=== PATIENT | female | born 1990 | race Caucasian/White ===

== ENCOUNTER 2018-06-07 14:03 | Emergency (ER) | payer MEDICAID ==
[~2018-06-07] VITALS: Ht 167.6 cm; Wt 135.9 kg
[2018-06-07 14:17] VITALS: BP 143/87
[2018-06-07] MEDS ORDERED: BACITRACIN ZINC OINT 500U/GM, 0.9 GM ONE ×2 (14:45→14:46)
== END 2018-06-07 14:58 | disposition home or self-care (01) ==
LOC: ED 14:52
DX: L03.114 Cellulitis of left upper limb (principal)
CPT/HCPCS: 99283

== ENCOUNTER 2018-06-09 09:47 | Emergency (ER) | payer MEDICAID ==
[~2018-06-09] VITALS: Ht 167.6 cm; Wt 139.3 kg
[2018-06-09 09:55] VITALS: BP 140/79
== END 2018-06-09 10:35 | disposition home or self-care (01) ==
LOC: ED 10:13
DX: L03.114 Cellulitis of left upper limb (principal); F17.200 Nicotine dependence, unspecified, uncomplicated
CPT/HCPCS: 99282

== ENCOUNTER 2018-06-10 22:43 | Emergency (ER) | payer MEDICAID ==
[~2018-06-10] VITALS: Ht 167.6 cm; Wt 139.3 kg
[2018-06-10 22:51] VITALS: BP 135/77
== END 2018-06-10 23:54 | disposition home or self-care (01) ==
LOC: ED 23:47
DX: L03.114 Cellulitis of left upper limb (principal)
CPT/HCPCS: 99281

== ENCOUNTER 2018-08-06 13:07 | Emergency (ER) | payer MEDICAID ==
[~2018-08-06] VITALS: Ht 167.6 cm; Wt 138.5 kg
[2018-08-06 13:48] VITALS: BP 157/96
[2018-08-06] MEDS ORDERED: KETOROLAC 30 MG/1 ML ONE (14:15)
[2018-08-06] MEDS ORDERED: METHOCARBAMOL 750 MG TABLET ONE (14:15)
[2018-08-06] MEDS ORDERED: METHOCARBAMOL 750 MG TABLET PO ONE (14:30)
[2018-08-06] MEDS ORDERED: KETOROLAC 30 MG/1 ML IM ONE (14:30)
== END 2018-08-06 14:57 | disposition home or self-care (01) ==
LOC: ED 14:50
DX: G24.3 Spasmodic torticollis (principal); F17.210 Nicotine dependence, cigarettes, uncomplicated
CPT/HCPCS: 72050; 96372; 99283; J1885

== ENCOUNTER 2019-04-06 21:42 | Emergency (ER) | payer MEDICAID ==
[~2019-04-06] VITALS: Ht 167.6 cm; Wt 120.0 kg
[2019-04-06 21:43] VITALS: BP 138/83
== END 2019-04-06 23:52 | disposition home or self-care (01) ==
LOC: ED 23:25
DX: S62.631B Displaced fracture of distal phalanx of left index finger, initial encounter for open fracture (principal); S61.211A Laceration without foreign body of left index finger without damage to nail, initial encounter; W23.0XXA Caught, crushed, jammed, or pinched between moving objects, initial encounter; Y93.89 Activity, other specified; Y92.009 Unspecified place in unspecified non-institutional (private) residence as the place of occurrence of the external cause; Y99.8 Other external cause status
CPT/HCPCS: 12042; 73140; 90471; 90715; 99284; Q0177

== ENCOUNTER 2019-07-10 19:53 | Emergency (ER) | payer MEDICAID ==
[~2019-07-10] VITALS: Ht 167.6 cm; Wt 121.9 kg
[~2019-07-10 19:53] MED LIST: B/P MED; CEPH-376 PO; LISI-170 PO; TRAM50TA2 PO; [UNRECOGNIZED DRUG - REMARK]
--- NOTE | 2019-07-10 21:14 | NUR ---
AMBULATORY TO XRAY
--- NOTE | 2019-07-10 21:48 | NUR ---
PT REPORT FROM JOSSELYN DE [facility]. PT CARE TO BE ASSUMED. DR BRAN IN PT ROOM
[2019-07-10] MEDS ORDERED: DULA0.75 SQ (22:01)
[2019-07-10 22:11] VITALS: BP 115/79
== END 2019-07-10 22:16 | disposition home or self-care (01) ==
LOC: ED 22:00
DX: B34.9 Viral infection, unspecified (principal); I10 Essential (primary) hypertension; F17.200 Nicotine dependence, unspecified, uncomplicated; Z90.89 Acquired absence of other organs
CPT/HCPCS: 71046; 99283

== ENCOUNTER 2020-08-30 12:11 | Emergency (ER) | payer MEDICAID ==
[~2020-08-30] VITALS: Ht 167.6 cm; Wt 100.0 kg
[~2020-08-30 12:11] MED LIST changes: +DULA0.75 SQ
[2020-08-30] MEDS ORDERED: SODIUM CHLORIDE FLUSH 10ML SYR IVF ONE (12:30)
[2020-08-30] MEDS ORDERED: LORazepam 1MG TABLET ONE (13:08)
[2020-08-30] MEDS ORDERED: ONDANSETRON 2MG/ML, 2ML ONE (13:26)
[2020-08-30] MEDS ORDERED: LORazepam 1MG TABLET PO ONE (13:30)
[2020-08-30 13:35] LABS: BASOPHILS % (AUTO) 1 % (0-1); EOSINOPHILS % (AUTO) 1 % (1-7); LYMPHOCYTES % (AUTO) 19 % (22-44); MEAN CORPUSCULAR HEMOGLOBIN 29.3 pg (27.0-34.8); MEAN CORPUSCULAR HGB CONC 32.9 g/dL (32.4-35.8); MEAN PLATELET VOLUME 7.7 fL (7.4-10.4); MONOCYTES % (AUTO) 4 % (2-9); NEUTROPHILS % (AUTO) 76 % (42-75); PLATELET COUNT 357 x10^3/uL (130-400); RED BLOOD COUNT 4.46 x10^6/uL (3.82-5.3); RED CELL DISTRIBUTION WIDTH 15.2 % (9.6-15.2)
[2020-08-30 13:38] LABS: MD NO
[2020-08-30 13:40] LABS: ALANINE AMINOTRANSFERASE 26 U/L (12-78); ALBUMIN 4.2 g/dL (3.4-5.0); ANION GAP 9 mmol/L (5-15); CALCIUM 8.9 mg/dL (8.5-10.1); CHLORIDE 113 mmol/L (98-107); CREATININE 0.78 mg/dL (0.55-1.02)
[2020-08-30 13:44] LABS: ALKALINE PHOSPHATASE 80 U/L (45-117); BILIRUBIN,TOTAL 0.3 mg/dL (0.2-1.0); TOTAL PROTEIN 8.3 g/dL (6.4-8.2)
[2020-08-30] MEDS ORDERED: ONDANSETRON 2MG/ML, 2ML IVPush ONE (14:00)
[2020-08-30] MEDS ORDERED: POTASSIUM CHLORIDE 20 MEQ TAB.ER.PRT PO ONE (14:30)
[2020-08-30] MEDS ORDERED: POTASSIUM CHLORIDE 20 MEQ TAB.ER.PRT ONE (15:20)
[2020-08-30 15:23] VITALS: BP 106/55
== END 2020-08-30 15:44 | disposition home or self-care (01) ==
LOC: ED 14:26
DX: F41.1 Generalized anxiety disorder (principal); R06.4 Hyperventilation; E87.6 Hypokalemia; R00.0 Tachycardia, unspecified
CPT/HCPCS: 36415; 80053; 84703; 85025; 93005; 96374; 99284; J2405